=== PATIENT | female | born 2005 | race Caucasian/White ===

== ENCOUNTER → 2023-06-15 | Outpatient (CLI) | payer OTHER ==
--- NOTE | 2023-06-15 18:25 | FL ---
EXAMINATION TYPE: FL UGI air w small bowel DATE OF EXAM: 06/15/2023 COMPARISON: NONE HISTORY: 18-year-old female R10.9, abdominal pain, some nausea, reports 6 months of occasional blood in the stool. TECHNIQUE: A double contrast UGI study is performed with small bowel follow through. A total of 2 m inutes 8 seconds of fluoroscopic time was utilized during procedure and 61 images obtained. Total do se area product (DAP) in uGy*m?, mGy*cm? (or similar): 25. FINDINGS: Patient Monitor image of the abdomen shows no gross abnormality. The esophagus shows normal motility and emptying into the stomach. No evidence of hiatal hernia or s tricture noted. However, there was severe gastroesophageal reflux encountered during the supine turning maneuvers. The stomach shows normal distensibility, peristalsis, and mucosal folds. There is appearance of smal l round filling defects at the proximal body of the stomach. No other evidence of of any mass or ulce r disease. The duodenal bulb and sweep are unremarkable. The small bowel study shows normal transit to the colon in less than 60 minutes. There is normal muc osal fold pattern throughout the small bowel. There is no evidence of any stricture or filling defec t noted. The terminal ileum is unremarkable. IMPRESSION: 1. No sizable hiatal hernia seen. However, there was severe gastroesophageal reflux to the patient's neck during supine turning maneuvers. 2. Small round filling defects within the proximal body of the stomach. As these persist on some of t he later images, some of these may represent small hyperplastic polyps (in the setting of mild chroni c gastritis) rather than persistent air bubbles related to the effervescent granules. 3. Normal small bowel exam with transit time of 60 minutes.
== END | disposition home or self-care (01) ==
LOC: RADFLMAIN 09:02
PROVIDERS: ATTEND Internal Medicine Gastroenterology
DX: K21.9 Gastro-esophageal reflux disease without esophagitis (principal)
CPT/HCPCS: 74240; 74248

== ENCOUNTER 2024-02-01 15:22 | Observation (INO) | payer OTHER ==
--- NOTE | 2024-02-01 15:56 | ED ---
Abdominal Pain HPI - General Chief Complaint: Abdominal Pain Stated Complaint: abd pain R side Time Seen by Provider: 02/01/24 15:39 Source: patient Mode of arrival: ambulatory Limitations: no limitations - History of Present Illness Initial Comments: This patient is a 18-year-old woman who presents to have evaluation of abdominal pain. She states that about 9 AM she had sharp periumbilical pain that lasted there for a very brief interval for moving to her right side. She states that she then went to an urgent care where they examined her and they performed a urinalysis that was reportedly negative and sent her to have evaluation for possible appendicitis. The patient states she has not noted fever or chills. She has had some associated nausea but no other fever , diarrhea, change in urination, vaginal discharge or bleeding. MD Complaint: abdominal pain Onset/Timin -: hour(s) Location: RLQ, epigastric Radiation: none Migration to: RLQ Severity: moderate Quality: other (Unable to characterize) Consistency: constant Improves With: nothing Worsens With: nothing Associated Symptoms: nausea - Related Data LMP (females 10-50): last week Home Medications Medication Instructions Recorded Confirmed clindamycin HCL [Cleocin] 300 mg PO QID 02/01/24 02/01/24 diphenhydrAMINE HCL [Benadryl 50 mg PO BID PRN 02/01/24 02/01/24 Allergy] Previous Rx's Medication Instructions Recorded Acetaminophen Tab [Tylenol Tab] 1,000 mg PO Q6HR PRN #30 tablet 02/02/24 Ibuprofen [Motrin] 600 mg PO Q8HR PRN #30 tab 02/02/24 Simethicone [Gas-X] 125 mg PO AC-TID PRN #20 capsule 02/02/24 Allergies Allergy/AdvReac Type Severity Reaction Status Date / Time cephalexin [From Keflex] AdvReac Rash/Hives Verified 02/01/24 16:29 sulfamethoxazole AdvReac Vomiting/Na Verified 02/01/24 16:33 [From Bactrim] usea/Headac hes trimethoprim [From Bactrim] AdvReac Vomiting/Na Verified 02/01/24 16:33 usea/Headac hes Review of Systems ROS Statement: Those systems with pertinent positive or pertinent negative responses have been documented in the HPI. ROS Other: All systems not noted in ROS Statement are negative. Constitutional: Denies: fever, chills, weakness Respiratory: Denies: cough, dyspnea Cardiovascular: Denies: chest pain, palpitations, edema Gastrointestinal: Reports: abdominal pain, nausea, constipation (Chronic). Denies: vomiting, diarrhea, melena, hematochezia Genitourinary: Denies: dysuria, hematuria Musculoskeletal: Denies: back pain Skin: Denies: rash Neurological: Denies: headache, weakness Past Medical History Past Medical History: No Reported History Past Surgical History: No Surgical Hx Reported Smoking Status: Never smoker Past Alcohol Use History: None Reported Past Drug Use History: None Reported General Exam Limitations: no limitations General appearance: alert, in no apparent distress Head exam: Present: atraumatic, normocephalic Eye exam: Present: normal appearance. Absent: scleral icterus, conjunctival injection ENT exam: Present: normal oropharynx Neck exam: Present: normal inspection Respiratory exam: Present: normal lung sounds bilaterally. Absent: respiratory distress, wheezes, rales, rhonchi, stridor, accessory muscle use Cardiovascular Exam: Present: regular rate, normal rhythm, normal heart sounds. Absent: systolic murmur, diastolic murmur, rubs, gallop GI/Abdominal exam: Present: soft, tenderness. Absent: distended, guarding, rebound, rigid, mass, pulsatile mass, hernia Extremities exam: Present: normal inspection, normal capillary refill. Absent: pedal edema, calf tenderness Back exam: Present: normal inspection. Absent: CVA tenderness (R), CVA tenderness (L) Neurological exam: Present: alert Skin exam: Present: warm, dry, intact, normal color. Absent: rash Course Vital Signs 02/01/24 02/01/24 02/01/24 15:29 16:49 18:20 Temperature 98 F Pulse Rate 97 81 80 Respiratory 18 18 16 Rate Blood Pressure 107/65 102/61 102/63 O2 Sat by Pulse 98 99 98 Oximetry 02/01/24 19:29 Temperature 98.2 F Pulse Rate 85 Respiratory 18 Rate Blood Pressure 113/68 O2 Sat by Pulse 100 Oximetry Medical Decision Making - Medical Decision Making The patient had CT scan of the abdomen pelvis that I interpreted as showing evidence of acute appendicitis. Was pt. sent in by a medical professional or institution (, PA, ADMISSIONS REPRESENTATIVE, urgent care, hospital, or care home...) When possible be specific @ -This the patient was sent here from urgent care clinic. Did you speak to anyone other than the patient for history (EMS, parent, family, police, friend...)? What history was obtained from this source @ -[No] Did you review nursing and triage notes (agree or disagree)? Why? @ -[I reviewed and agree with nursing and triage notes] Were old charts reviewed (outside hosp., previous admission, EMS record, old EKG, old radiological studies, urgent care reports/EKG's, care home records)? Report findings @ -Yes, old charts were reviewed] Differential Diagnosis (chest pain, altered mental status, abdominal pain women, abdominal pain men, vaginal bleeding, weakness, fever, dyspnea, syncope, headache, dizziness, GI bleed, back pain, seizure, CVA, palpatations, mental health, musculoskeletal)? @ -[Differential Abdominal Pain Women: Appendicitis, Cholecystitis, diverticulosis, ischemic bowel, pancreatitis, hepatitis, UTI, gastroenteritis, AAA, incarcerated hernia, bowel obstruction, constipation, inflammatory bowel, hepatitis, peptic ulcer disease, splenic infarction, perforated viscus, vulvitis, ovarian torsion, PID, kidney stone, placenta abruption, this is not meant to be an all-inclusive list EKG interpreted by me (3pts min.). @ -[As above] X-rays interpreted by me (1pt min.). @ -[None done] CT interpreted by me (1pt min.). @ -[I interpreted as above U/S interpreted by me (1pt. min.). @ -[None done] What testing was considered but not performed or refused? (CT, X-rays, U/S, labs)? Why? @ -[None] What meds were considered but not given or refused? Why? @ -[None] Did you discuss the management of the patient with other professionals (professionals i.e. , PA, ADMISSIONS REPRESENTATIVE, lab, RT, psych nurse, geriatric social worker, box lining machine operator, teacher, chief sustainability officer, rn case manager hospice)? Give summary @ -[No] Was smoking cessation discussed for >3mins.? @ -[No] Was critical care preformed (if so, how long)? @ -[No] Were there social determinants of health that impacted care today? How? (Homelessness, low income, unemployed, alcoholism, drug addiction, transportation, low edu. Level, literacy, decrease access to med. care, assisted, rehab)? @ -[No] Was there de-escalation of care discussed even if they declined (Discuss DNR or withdrawal of care, Hospice)? DNR status @ -[No] What co-morbidities impacted this encounter? (DM, HTN, Smoking, COPD, CAD, Cancer, CVA, ARF, Chemo, Hep., AIDS, mental health diagnosis, sleep apnea, morbid obesity)? @ -[None] Was patient admitted / discharged? Hospital course, mention meds given and route, prescriptions, significant lab abnormalities, going to OR and other pertinent info. @ -[hospital course] Undiagnosed new problem with uncertain prognosis? @ -[No] Drug Therapy requiring intensive monitoring for toxicity (Heparin, Nitro, Insulin, Cardizem)? @ -[No] Were any procedures done? @ -[No] Diagnosis/symptom? @ -Abdominal pain Acute appendicitis Acute, or Chronic, or Acute on Chronic? @ -[Acute Uncomplicated (without systemic symptoms) or Complicated (systemic symptoms)? @ -[Uncomplicated Side effects of treatment? @ -[No] Exacerbation, Progression, or Severe Exacerbation? @ -[No] Poses a threat to life or bodily function? How? (Chest pain, USA, IA, pneumonia, PE, COPD, DKA, ARF, appy, cholecystitis, CVA, Diverticulitis, Homicidal, Suicidal, threat to staff... and all critical care pts) @ -[No] - Lab Data Result diagrams: 02/02/24 05:21 02/01/24 15:56 Lab Results 02/01/24 02/01/24 02/01/24 Range/Units 15:56 15:56 15:56 WBC 14.2 H (4.0-11.0) k/uL RBC 4.65 (3.80-5.40) m/uL Hgb 14.6 (11.4-16.0) gm/dL Hct 44.3 (34.0-46.0) % MCV 95.3 (80.0-100.0) fL MCH 31.3 (25.0-35.0) pg MCHC 32.8 (31.0-37.0) g/dL RDW 12.1 (11.5-15.5) % Plt Count 346 (150-450) k/uL MPV 7.8 Neutrophils % 73 % Lymphocytes % 20 % Monocytes % 4 % Eosinophils % 2 % Basophils % 0 % Neutrophils # 10.4 H (1.3-7.7) k/uL Lymphocytes # 2.8 (1.0-4.8) k/uL Monocytes # 0.6 (0-1.0) k/uL Eosinophils # 0.3 (0-0.7) k/uL Basophils # 0.1 (0-0.2) k/uL Sodium 137 (137-145) mmol/L Potassium 4.1 (3.5-5.1) mmol/L Chloride 106 (98-107) mmol/L Carbon Dioxide 23 (22-30) mmol/L Anion Gap 8 mmol/L BUN 10 (7-17) mg/dL Creatinine 0.51 L (0.52-1.04) mg/dL Est GFR (CKD-EPI)AfAm >90 (>60 ml/min/1.73 sqM) Est GFR (CKD-EPI)NonAf >90 (>60 ml/min/1.73 sqM) Glucose 82 (74-99) mg/dL Plasma Lactic Acid Parish (0.7-2.0) mmol/L Calcium 9.7 (8.4-10.2) mg/dL Total Bilirubin 0.5 (0.2-1.3) mg/dL AST 26 (14-36) U/L ALT 16 (4-34) U/L Alkaline Phosphatase 77 (38-126) U/L C-Reactive Protein <0.5 (<1.0) mg/dL Total Protein 7.0 (6.3-8.2) g/dL Albumin 4.5 (3.5-5.0) g/dL Urine HCG, Qual Not Detected (Not Detectd) 02/01/24 Range/Units 15:56 WBC (4.0-11.0) k/uL RBC (3.80-5.40) m/uL Hgb (11.4-16.0) gm/dL Hct (34.0-46.0) % MCV (80.0-100.0) fL MCH (25.0-35.0) pg MCHC (31.0-37.0) g/dL RDW (11.5-15.5) % Plt Count (150-450) k/uL MPV Neutrophils % % Lymphocytes % % Monocytes % % Eosinophils % % Basophils % % Neutrophils # (1.3-7.7) k/uL Lymphocytes # (1.0-4.8) k/uL Monocytes # (0-1.0) k/uL Eosinophils # (0-0.7) k/uL Basophils # (0-0.2) k/uL Sodium (137-145) mmol/L Potassium (3.5-5.1) mmol/L Chloride (98-107) mmol/L Carbon Dioxide (22-30) mmol/L Anion Gap mmol/L BUN (7-17) mg/dL Creatinine (0.52-1.04) mg/dL Est GFR (CKD-EPI)AfAm (>60 ml/min/1.73 sqM) Est GFR (CKD-EPI)NonAf (>60 ml/min/1.73 sqM) Glucose (74-99) mg/dL Plasma Lactic Acid Parish 1.0 (0.7-2.0) mmol/L Calcium (8.4-10.2) mg/dL Total Bilirubin (0.2-1.3) mg/dL AST (14-36) U/L ALT (4-34) U/L Alkaline Phosphatase (38-126) U/L C-Reactive Protein (<1.0) mg/dL Total Protein (6.3-8.2) g/dL Albumin (3.5-5.0) g/dL Urine HCG, Qual (Not Detectd) Disposition Clinical Impression: Abdominal pain, Acute appendicitis Disposition: ADMITTED IP TO THIS HOSP Condition: Good Is patient prescribed a controlled substance at d/c from ED?: No
[2024-02-01 16:19] LABS: Basophils # (A) 0.1 k/uL (0-0.2); Basophils % (A) 0 %; Eosinophils # (A) 0.3 k/uL (0-0.7); Eosinophils % (A) 2 %; HCT 44.3 % (34.0-46.0); HGB 14.6 gm/dL (11.4-16.0); Lymphocytes # (A) 2.8 k/uL (1.0-4.8); Lymphocytes % (A) 20 %; MCH 31.3 pg (25.0-35.0); MCHC 32.8 g/dL (31.0-37.0); MCV 95.3 fL (80.0-100.0); Mean Platelet Volume 7.8; Monocytes # (A) 0.6 k/uL (0-1.0); Monocytes % (A) 4 %; Neutrophils # (A) 10.4 k/uL (1.3-7.7); Neutrophils % (A) 73 %; Platelet Count 346 k/uL (150-450); RBC 4.65 m/uL (3.80-5.40); RDW 12.1 % (11.5-15.5); WBC 14.2 k/uL (4.0-11.0)
[2024-02-01 16:30] LABS: ALT 16 U/L (4-34); AST 26 U/L (14-36); African American GFR (CKD) >90 (>60 ml/min/1.73 sqM); Albumin 4.5 g/dL (3.5-5.0); Alkaline Phosphatase 77 U/L (38-126); Anion Gap 8 mmol/L; Blood Urea Nitrogen 10 mg/dL (7-17); Calcium 9.7 mg/dL (8.4-10.2); Carbon Dioxide 23 mmol/L (22-30); Chloride 106 mmol/L (98-107); Glucose 82 mg/dL (74-99); Non-African American GFR(CKD) >90 (>60 ml/min/1.73 sqM); Potassium 4.1 mmol/L (3.5-5.1); Sodium 137 mmol/L (137-145); Total Bilirubin 0.5 mg/dL (0.2-1.3)
[2024-02-01 17:06] LABS: C Reactive Protein <0.5 mg/dL (<1.0)
[2024-02-01] MEDS: MORPHINE SULFATE 4 MG/ML SYRINGE IV STA (18:20)
--- NOTE | 2024-02-01 18:21 | CT ---
EXAMINATION TYPE: CT abdomen pelvis wo con DATE OF EXAM: 02/01/2024 COMPARISON: None HISTORY: 18-year-old female RLQ pain, r/o appendicitis. CT DLP: 411.9 mGycm. Automated exposure control for dose reduction was used. TECHNIQUE: Contiguous axial scanning of the abdomen and pelvis without IV contrast. Coronal and sagit jose reconstructions performed. FINDINGS: Heart normal size without pericardial effusion. Lung bases clear without pleural effusion. Noncontrast appearance of the liver, gallbladder, adrenal glands, kidneys, spleen, and pancreas show no gross abnormality. No dilated small bowel, free fluid, or free air. The appendix is mildly dilated up to 7 mm, fluid-filled, and containing a straightening of punctate a ppendicoliths measuring up to 3 mm. There is mild periappendiceal fat stranding present. A few borderline enlarged 1 cm mesenteric lymph nodes probably reactive/post inflammatory. Mild overall stool burden. No other peritransplant inflammatory change seen. Bladder urine distended. Uterus anteverted. Both ovaries are visualized. Mild cul-de-sac free fluid l ikely physiologic. Bones: Right lower truncal shift likely positional. IMPRESSION: 1. Exam positive for acute diverticulitis with mild inflammation. No abscess or free air. 2. Mild cul-de-sac free fluid likely physiologic.
[2024-02-01] MEDS: SODIUM CHLORIDE 0.9% 500 ML 500 ML IV STA (18:59)
[2024-02-01] MEDS: SODIUM CHLORIDE 0.9% 1,000 ML IV STA (18:59)
[2024-02-01] MEDS ORDERED: NALOXONE 0.4 MG/ML 1 ML VIAL IV PRN (19:24)
[2024-02-01] MEDS ORDERED: MAG HYDROX/AL HYDROX/SIMETH 30 ML CUP PO PRN (19:24)
--- NOTE | 2024-02-01 19:29 | P.GSHP ---
History of Present Illness H&P Date: 02/01/24 CHIEF COMPLAINT: Right lower quadrant abdominal pain with appendicitis for less than 12 hours HISTORY OF PRESENT ILLNESS: The patient is a previously healthy 18-year-old female who presents with less than 12-hour history of periumbilical with right lower quadrant abdominal pain that is crampy dull ache in nature. No reports of prior abdominal pain. She states the intensity of the pain is moderate. Her presented with CT abdomen and pelvis consistent with dilated appendix suspicious for appendicitis hence general surgery admission. PAST MEDICAL HISTORY: See list and reviewed PAST SURGICAL HISTORY: See list and reviewed CURRENT MEDICATIONS: See list and reviewed ALLERGIES: See list and reviewed SOCIAL HISTORY: See list and reviewed FAMILY HISTORY: See list and reviewed REVIEW OF ORGAN SYSTEMS: CONSTITUTIONAL: Present fever, no chills. Denies recent weight loss. HEENT: Denies any trouble with vision, hearing or nosebleeds. No difficulty swallowing. LYMPHATIC: The patient denies any lumps and bumps around the neck. ENDOCRINE: Denies any thyroid disorders. Denies any blood sugar glucose intolerance. RESPIRATORY: Denies shortness of breath including chronic cough. CARDIOVASCULAR: Denies history of chest pain with exertion. GASTROINTESTINAL: Denies regurgitation of bile at night as well as intermittent nausea. No blood in stools. GENITOURINARY: Denies any blood in urine or increased urinary frequency. MUSCULOSKELETAL: Denies current joint arthritis. NEUROLOGIC: Denies any numbness or tingling along the distal extremities. No seizure disorders or headaches. PSYCHIATRIC: Denies any depression or suicidal ideation. HEMATOLOGIC: Denies any abnormal bleeding or bruising. PHYSICAL EXAMINATION: VITALS: Reviewed. GENERAL: Well-developed and in no acute distress. Pleasant. HEENT: No sclera icterus. Extraocular movements grossly intact. Moist buccal mucosa. Head is atraumatic, normocephalic. Hears conversational speech. No nasal drainage. NECK: Supple without lymphadenopathy. No JV distention. CHEST: Non-labored respirations and equal bilateral excursions. CARDIOVASCULAR: Regular rate and rhythm. Palpable 2+ radial pulses. ABDOMEN: Soft, tender at the right lower quadrant without guarding. MUSCULOSKELETAL: No clubbing, cyanosis or edema. NEUROLOGIC: No focal or lateralizing signs. PSYCH: Appropriate affect. Alert and oriented to person, place and time. SKIN: Well perfused. Good skin turgor. LABS: Reviewed. White blood cell count elevated over 14,000. STUDIES: CT of the abdomen and pelvis independently reviewed with findings consistent with appendicitis. ASSESSMENT: 1. Right lower quadrant pain. 2. Appendicitis 3. Leukocytosis. PLAN: 1. I have discussed benefits and risks of robotic appendectomy. 2. Bilateral SCDs. 3. Antibiotics intravenous to address moderate leukocytosis Thank you very much for allowing me to participate in the care of your patient. Past Medical History Past Medical History: No Reported History Past Surgical History: No Surgical Hx Reported Smoking Status: Never smoker Past Alcohol Use History: None Reported Past Drug Use History: None Reported Medications and Allergies Home Medications Medication Instructions Recorded Confirmed Type clindamycin HCL [Cleocin] 300 mg PO QID 02/01/24 02/01/24 History diphenhydrAMINE HCL [Benadryl 50 mg PO BID PRN 02/01/24 02/01/24 History Allergy] Allergies Allergy/AdvReac Type Severity Reaction Status Date / Time cephalexin [From Keflex] AdvReac Rash/Hives Verified 02/01/24 16:29 sulfamethoxazole AdvReac Vomiting/Na Verified 02/01/24 16:33 [From Bactrim] usea/Headac hes trimethoprim [From Bactrim] AdvReac Vomiting/Na Verified 02/01/24 16:33 usea/Headac hes Surgical - Exam Vital Signs Temp Pulse Resp BP Pulse Ox 98 F 97 18 107/65 98 02/01/24 15:29 02/01/24 15:29 02/01/24 15:29 02/01/24 15:29 02/01/24 15:29 Results - Labs 02/01/24 15:56 02/01/24 15:56 Abnormal Lab Results - Last 24 Hours (Table) 02/01/24 02/01/24 Range/Units 15:56 15:56 WBC 14.2 H (4.0-11.0) k/uL Neutrophils # 10.4 H (1.3-7.7) k/uL Creatinine 0.51 L (0.52-1.04) mg/dL Diabetes panel 02/01/24 Range/Units 15:56 Sodium 137 (137-145) mmol/L Potassium 4.1 (3.5-5.1) mmol/L Chloride 106 (98-107) mmol/L Carbon Dioxide 23 (22-30) mmol/L BUN 10 (7-17) mg/dL Creatinine 0.51 L (0.52-1.04) mg/dL Glucose 82 (74-99) mg/dL Calcium 9.7 (8.4-10.2) mg/dL AST 26 (14-36) U/L ALT 16 (4-34) U/L Alkaline Phosphatase 77 (38-126) U/L Total Protein 7.0 (6.3-8.2) g/dL Albumin 4.5 (3.5-5.0) g/dL Calcium panel 02/01/24 Range/Units 15:56 Calcium 9.7 (8.4-10.2) mg/dL Albumin 4.5 (3.5-5.0) g/dL Pituitary panel 02/01/24 Range/Units 15:56 Sodium 137 (137-145) mmol/L Potassium 4.1 (3.5-5.1) mmol/L Chloride 106 (98-107) mmol/L Carbon Dioxide 23 (22-30) mmol/L BUN 10 (7-17) mg/dL Creatinine 0.51 L (0.52-1.04) mg/dL Glucose 82 (74-99) mg/dL Calcium 9.7 (8.4-10.2) mg/dL Adrenal panel 02/01/24 Range/Units 15:56 Sodium 137 (137-145) mmol/L Potassium 4.1 (3.5-5.1) mmol/L Chloride 106 (98-107) mmol/L Carbon Dioxide 23 (22-30) mmol/L BUN 10 (7-17) mg/dL Creatinine 0.51 L (0.52-1.04) mg/dL Glucose 82 (74-99) mg/dL Calcium 9.7 (8.4-10.2) mg/dL Total Bilirubin 0.5 (0.2-1.3) mg/dL AST 26 (14-36) U/L ALT 16 (4-34) U/L Alkaline Phosphatase 77 (38-126) U/L Total Protein 7.0 (6.3-8.2) g/dL Albumin 4.5 (3.5-5.0) g/dL
[2024-02-01] MEDS: LIDOCAINE 2%-EPI 1:100,000 20 ML VIAL SQ ONE ×3 (20:02→20:57)
[2024-02-01] MEDS ORDERED: MIDAZOLAM 2 MG/2 ML VIAL ONE (20:40)
[2024-02-01] MEDS ORDERED: ROCURONIUM 10 MG/ML (5 ML VIAL) IV ONE (20:40)
[2024-02-01] MEDS ORDERED: SUCCINYLCHOLINE CHLORIDE 200 MG/10 ML VIAL IV ONE (20:40)
[2024-02-01] MEDS ORDERED: PROPOFOL 10 MG/ML 20 ML VIAL IV ONE (20:40)
[2024-02-01] MEDS: IV FLUID CONTINUATION 1,000 ML IV ONE (20:40)
[2024-02-01] MEDS ORDERED: HYDROmorphone (PF) 1 MG/ML ONE (20:40)
[2024-02-01] MEDS ORDERED: KETOROLAC 15 MG/ML 1 ML VIAL ONE (20:40)
[2024-02-01] MEDS ORDERED: fentaNYL (PF) 50 MCG/ML 2 ML AMP ONE (20:40)
[2024-02-01] MEDS: SODIUM CHLORIDE 0.9% 50 ML with ceFAZolin 2,000 MG IV ONE (20:59)
[2024-02-01] MEDS: LACTATED RINGERS 1,000 ML IV ONE (21:21)
[2024-02-01] MEDS ORDERED: HYDROmorphone 1 MG/ML 1 ML SYRINGE IVP PRN (21:31)
[2024-02-01] MEDS ORDERED: diphenhydrAMINE 50 MG/ML 1 ML VIAL IVP PRN (21:33)
--- NOTE | 2024-02-01 21:36 | P.OP ---
Date of Procedure: 02/01/24 Description of Procedure: SURGEON: GALE PELLETIER MD Preoperative Diagnosis: 1. Acute appendicitis Postoperative Diagnosis: 1. Acute appendicitis, retrocecal with periappendicitis 2. Chronic cholecystitis Procedure(s) Performed: 1. Robotic-assisted daVinci Xi laparoscopic appendectomy Anesthesia: GETA, local Estimated Blood Loss (ml): 5 Pathology: other (appendix) Condition: stable Disposition: floor Operative Findings: 1. Acute appendicitis without rupture with periappendicitis, retrocecal 2. Terminal ileum unremarkable 3. Cecum unremarkable 4. Right upper quadrant pericholecystic adhesions suspicious for chronic cholecystitis INDICATIONS: The patient is a 18-year-old male who presents with acute appendicitis. Benefits and risks, including infection, open surgery, and bleeding for additional surgery was discussed at length. Informed consent was obtained. All questions of the patient and family were answered. DESCRIPTION: The patient was transferred to the operating room and placed in supine position. The patient had previously voided. The abdomen was then prepp ed and draped in standard sterile fashion as Ioban was placed along the abdomen to minimize any contamination of skin floor. After a timeout protocol was performed, attention was then brought to the left upper quadrant whereby a 0 degree 5 mm laparoscopic trocar entry was performed. The abdominal cavity was entered and insufflated to 12 mmHg pressure, which was tolerated well. Diagnostic laparoscopy demonstrated no injury to bowel, viscera or mesentery. Next a robotic 8-mm trocar was placed along the left lower quadrant, 10-cm lateral to the midline. A 12 mm port was placed along the left upper quadrant and another 8-mm port left lateral abdominal wall. Ports were placed 8 cm apart from each other including 15-20 cm away from the target anatomy of the right pelvis. The patient was then placed in Trendelenburg position, at least 14 down and right side up at least 7. The robotic da Amber XI system was primed and docked from the left side of the patient. Using atraumatic graspers and vessel sealer, the robotic system was docked and primed as described. Instruments were interchanged by the assistant shift supervisor including graspers, robotic stapler and vessel sealer. Next, attention was brought to identify the cecum. A systematic view within the abdominal cavity was started with the small bowel which was unremarkable. The gallbladder had pericholecystic adhesions consistent with chronic cholecystitis. The base of the cecum was unremarkable. The appendix was retrocecal coursing towards right upper quadrant behind the ascending colon with additional dissection required. The body of the appendix was dilated with periappendicitis. No perforation was identified. The appendix was dissected free from its surrounding tissues. White 45 mm robotic staple loads were fired along the base of the appendix. The staple line was hemostatic. Hemostasis was checked prior to undocking the robot. The robot was undocked. I re-scrubbed into the case. The specimen was removed from the abdominal cavity through the 12 mm trocar at the left upper quadrant. All instruments and pneumoperitoneum were evacuated from the abdominal cavity. Local anesthetic was infiltrated to all wounds for postop analgesia. All incisions were also cleansed with diluted hydrogen peroxide. The incisions were closed with 4-0 Monocryl. Exofin glue was applied to the rest of the skin incisions. The patient had tolerated the procedure well. The patient was extubated successfully. The patient was transferred to the postanesthesia care unit in stable condition.
[2024-02-01 21:56] VITALS: RESP 16
[2024-02-01] MEDS: ONDANSETRON 4 MG/2 ML VIAL IVP PRN (22:25)
[2024-02-01] MEDS: HEPARIN SODIUM,PORCINE 5,000 UNIT/ML 1 ML VIAL SQ STA (22:38)
[2024-02-01] MEDS: FAMOTIDINE 20 MG TAB PO SCH (22:38)
[2024-02-02] MEDS: AMPICILLIN-SULBACTAM 3 GM in SODIUM CHLORIDE 0.9% 100 ML IVPB SCH (00:20)
[2024-02-02] MEDS: ACETAMINOPHEN TAB 325 MG TAB PO SCH (00:20)
[2024-02-02] MEDS: DEXAMETHASONE SOD PHOSPHATE 4 MG/ML 1 ML VIAL IVP SCH (00:21)
[2024-02-02] MEDS: KETOROLAC 15 MG/ML 1 ML VIAL IVP SCH (00:21)
[2024-02-02] MEDS: SODIUM CHLORIDE 0.9% 1,000 ML IV SCH (00:47)
[2024-02-02] MEDS: SCOPOLAMINE 1 MG/72 HR PATCH TRANSDERM STA (00:47)
[2024-02-02] MEDS: MORPHINE SULFATE 4 MG/ML SYRINGE IV PRN (06:35)
[2024-02-02] MEDS: HEPARIN SODIUM,PORCINE 5,000 UNIT/ML 1 ML VIAL SQ SCH (08:17)
[2024-02-02 08:45] VITALS: BP 95/53; PULSE 93; TEMP 98.2
--- NOTE | 2024-02-02 08:54 | US ---
EXAMINATION TYPE: US gallbladder DATE OF EXAM: 02/02/2024 COMPARISON: CT 02/01/2024 CLINICAL INDICATION: Female, 18 years old with history of Right upper quadrant pain; RUQ pain, append ectomy after CT last night. TECHNIQUE: Multiple sonographic images of the right upper quadrant are obtained. FINDINGS: EXAM MEASUREMENTS: Liver Length: 14.4 cm Gallbladder Wall: 0.22 cm CBD: 0.34 cm Right Kidney: 12.1 x 5.0 x 4.6 cm DISTRICT TRAFFIC CHIEF NOTES: Exam is limited due to gas. Pancreas: Portions seen appear wnl, slightly limited. Liver: Appears wnl Gallbladder: Folds seen. No abnormalities seen at this time. Evidence for sonographic Rich's sign: No CBD: Appears wnl Right Kidney: No hydronephrosis or masses seen IMPRESSION: No evidence for acute process.
[2024-02-02 10:56] LABS: Basophils # (A) 0.02 X 10*3/uL (0.00-0.10); Basophils % (A) 0.2 %; Eosinophils # (A) 0 X 10*3/uL (0.04-0.35); Eosinophils % (A) 0 %; HCT 37.9 % (37.2-46.3); HGB 12.6 g/dL (12.0-15.0); Lymphocytes # (A) 1.06 X 10*3/uL (0.90-5.00); Lymphocytes % (A) 9.4 %; MCHC 33.2 g/dL (32.0-37.0); MCV 93.1 FL (80.0-97.0); Mean Platelet Volume 10.3 FL (9.5-12.2); Monocytes # (A) 0.08 X 10*3/uL (0.20-1.00); Monocytes % (A) 0.7 %; NRBC Per 100 WBC 0 X 10*3/uL (0.00-0.01); Neutrophils # (A) 10.12 X 10*3/uL (1.80-7.70); Neutrophils % (A) 89.3 %; Platelet Count 313 X 10*3/uL (140-440); RBC 4.07 X 10*6/uL (4.10-5.20); WBC 11.32 X 10*3/uL (4.50-10.00)
--- NOTE | 2024-02-02 14:37 | P.DS ---
Providers Date of admission: 02/01/24 19:25 Expected date of discharge: 02/02/24 Attending physician: Trupti Buck Consults: 02/01/24 19:26 Consult Physician Routine Consulting Provider: [facility] Consult Reason/Comments: [facility] Do you want consulting provider notified?: Yes Primary care physician: Rogelio Simons - Discharge Diagnosis(es) (1) Cholecystitis Current Visit: Yes Status: Acute (2) Acute appendicitis Current Visit: Yes Status: Acute Hospital Course: Postoperative Diagnosis: 1. Acute appendicitis, retrocecal with periappendicitis 2. Chronic cholecystitis 3. Gastroesophageal reflux disease 4. Right upper quadrant abdominal pain 5. Right lower quadrant abdominal pain COURSE: The patient is a 18-year-old female admitted with right lower quadrant abdominal pain. Additional history obtained by her mother reports patient has been having epigastric and right upper quadrant abdominal pain for several weeks. No additional diagnostic studies or ultrasounds or upper or lower endoscopies have been performed. CT of the abdomen pelvis demonstrated acute appendicitis. Patient underwent diagnostic Prosky B with appendectomy without sequelae. Intraoperative findings demonstrated moderate adhesions along the gallbladder consistent with chronic cholecystitis. Ultrasound of the gallbladder was obtained to exclude gallstones. Prior to discharge, white blood cell count was improving. Patient was tolerating diet. Her pain had improved. Patient was stable for discharge. Outpatient management for reflux disease and gallbladder disease described. Pertinent Studies: CT of the abdomen pelvis demonstrates acute appendicitis. Ultrasound of the gallbladder without acute gallstones. Procedures: Procedure(s) Performed: 1. Robotic-assisted daVinci Xi laparoscopic appendectomy Anesthesia: GETA, local Estimated Blood Loss (ml): 5 Pathology: other (appendix) Condition: stable Disposition: floor Operative Findings: 1. Acute appendicitis without rupture with periappendicitis, retrocecal 2. Terminal ileum unremarkable 3. Cecum unremarkable 4. Right upper quadrant pericholecystic adhesions suspicious for chronic cholecystitis Patient Condition at Discharge: Good Plan - Discharge Summary Discharge Rx Participant: No New Discharge Prescriptions: New Simethicone [Gas-X] 125 mg PO AC-TID PRN #20 capsule PRN Reason: Pain Ibuprofen [Motrin] 600 mg PO Q8HR PRN #30 tab PRN Reason: Pain Acetaminophen Tab [Tylenol Tab] 1,000 mg PO Q6HR PRN #30 tablet PRN Reason: Pain Continue clindamycin HCL [Cleocin] 300 mg PO QID diphenhydrAMINE HCL [Benadryl Allergy] 50 mg PO BID PRN PRN Reason: Allergic Reaction Discharge Medication List clindamycin HCL [Cleocin] 300 mg PO QID 02/01/24 [History] diphenhydrAMINE HCL [Benadryl Allergy] 50 mg PO BID PRN 02/01/24 [History] Acetaminophen Tab [Tylenol Tab] 1,000 mg PO Q6HR PRN #30 tablet 02/02/24 [Rx] Ibuprofen [Motrin] 600 mg PO Q8HR PRN #30 tab 02/02/24 [Rx] Simethicone [Gas-X] 125 mg PO AC-TID PRN #20 capsule 02/02/24 [Rx] Follow up Appointment(s)/Referral(s): Rogelio Simons MD [Primary Care Provider] - 1-2 days Trupti Buck MD [STAFF PHYSICIAN] - 02/07/24 6:00 pm (TELEHEALTH) Patient Instructions/Handouts: Laparoscopic Appendectomy (DC) Activity/Diet/Wound Care/Special Instructions: TELEHEALTH - DR WILL CALL YOU BETWEEN 9 am to 8 pm NO LONG DRIVES OR AIRPLANE RIDES OVER 30 MINUTES FOR THE NEXT 2 WEEKS DUE TO HIGH RISK OF PULMONARY EMBOLISM/DVTs Recommend low-fat diet for the next 2 days. No lifting over 10 pounds in 2 weeks until February 14November shower. No bath tub soaks for two weeks until February 14 Diet as tolerated. Use Tylenol, simethicone and ibuprofen or Aleve scheduled for the next 24-48 hours for best pain relief. Use ice along incisions for today to prevent swelling. Discharge Disposition: HOME SELF-CARE
== END 2024-02-02 15:23 | disposition home or self-care (01) ==
LOC: EC 15:22 → INTOOBSV 19:25 → 6NMEDSUR 19:25 → UNDODISIN 02-02 15:23
PROVIDERS: ADMIT Surgery Plastic and Reconstructive Surgery; ATTEND Surgery Plastic and Reconstructive Surgery
DX: K35.80 Unspecified acute appendicitis (principal); K81.1 Chronic cholecystitis; K82.8 Other specified diseases of gallbladder; D72.829 Elevated white blood cell count, unspecified; K21.9 Gastro-esophageal reflux disease without esophagitis; Z88.1 Allergy status to other antibiotic agents; Z88.2 Allergy status to sulfonamides
CPT/HCPCS: 44970; S2900; 36415; 74176; 76705; 80053; 81025; 83605; 85025; 86140; 88304; 96365; 96366; 96372; 96375; 96376; 99285

== ENCOUNTER 2024-03-22 07:42 | Day surgery (SDC) | payer OTHER ==
[2024-03-22] MEDS ORDERED: LIDOCAINE 1% INJ 10MG/ML (20 ML MDV) ONE (08:48)
[2024-03-22] MEDS ORDERED: PROPOFOL 10 MG/ML 20 ML VIAL IV ONE (08:48)
[2024-03-22] MEDS ORDERED: LACTATED RINGERS 1,000 ML BAG ONE (08:48)
--- NOTE | 2024-06-14 05:12 | P.GSHP ---
History of Present Illness H&P Date: 03/22/24 CHIEF COMPLAINT: GERD and change in bowel habits HISTORY OF PRESENT ILLNESS: The patient is a 18-year-old female who presents with gastroesophageal reflux disease, epigastric abdominal pain and change in bowel habits for over 3-6 months Upper and lower endoscopy were offered for further evaluation and management. PAST MEDICAL HISTORY: Please see list. PAST SURGICAL HISTORY: Please see list. MEDICATIONS: Please see list. ALLERGIES: Please see list. SOCIAL HISTORY: No illicit drug use FAMILY HISTORY: No reports of Crohn disease or ulcerative colitis. REVIEW OF ORGAN SYSTEMS: CONSTITUTIONAL: No reports of fevers or chills. GI: As above PHYSICAL EXAM: VITAL SIGNS: Stable GENERAL: Well-developed pleasant in no acute distress. HEENT: No scleral icterus. Extraocular movements grossly intact. Moist buccal mucosa. NECK: Supple without lymphadenopathy. CHEST: Unlabored respirations. Equal bilateral excursions. CARDIOVASCULAR: Regular rate and rhythm. Distal 2+ pulses. ABDOMEN: Soft, nondistended. MUSCULOSKELETAL: No clubbing, cyanosis, or edema. ASSESSMENT: 1. Gastroesophageal reflux disease 2. Change in bowel habits PLAN: 1. Recommend proceeding with an upper and lower endoscopy Past Medical History Past Medical History: No Reported History History of Any Multi-Drug Resistant Organisms: None Reported Past Surgical History: No Surgical Hx Reported Past Anesthesia/Blood Transfusion Reactions: No Reported Reaction Smoking Status: Never smoker Past Alcohol Use History: None Reported Past Drug Use History: None Reported Medications and Allergies Home Medications Medication Instructions Recorded Confirmed Type clindamycin HCL [Cleocin] 300 mg PO QID 02/01/24 02/01/24 History diphenhydrAMINE HCL [Benadryl 50 mg PO BID PRN 02/01/24 02/01/24 History Allergy] Acetaminophen Tab [Tylenol Tab] 1,000 mg PO Q6HR PRN #30 tablet 02/02/24 Rx Ibuprofen [Motrin] 600 mg PO Q8HR PRN #30 tab 02/02/24 Rx Simethicone [Gas-X] 125 mg PO AC-TID PRN #20 capsule 02/02/24 Rx Allergies Allergy/AdvReac Type Severity Reaction Status Date / Time cephalexin [From Keflex] AdvReac Rash/Hives Verified 02/01/24 16:29 sulfamethoxazole AdvReac Vomiting/Na Verified 02/01/24 16:33 [From Bactrim] usea/Headac hes trimethoprim [From Bactrim] AdvReac Vomiting/Na Verified 02/01/24 16:33 usea/Headac hes
--- NOTE | 2024-06-14 05:17 | P.PCN ---
Date of Procedure: 03/22/24 Description of Procedure: PREOPERATIVE DIAGNOSIS: Gastroesophageal reflux disease. Epigastric abdominal pain POSTOPERATIVE DIAGNOSIS: Gastroesophageal reflux disease. Gastritis. OPERATION: Esophagogastroduodenoscopy with biopsies along esophagus, antrum and duodenum SURGEON: Trupti Buck MD ANESTHESIA: MAC. INDICATIONS: The patient is a 18-year-old female who presents with gastric pain and reflux disease. Benefits and risks of the procedure were described. Informed consent was obtained. DESCRIPTION: The patient was brought into the endoscopy suite and laid in the left lateral decubitus position. An Olympus gastroscope was passed along the posterior oropharynx down to the distal esophagus where the squamocolumnar junction was encountered at 35cm from the incisors. The stomach was entered and no bile reflux was found. Additional findings are listed below. Biopsies with cold forceps were obtained of the antrum. The first through third portion of the duodenum was examined. Retroflexion of the scope confirmed Hill grade 1 lower esophageal valve. The squamocolumnar junction demonstrated LA grade B erosive esophagitis. The stomach was desufflated. The patient tolerated the procedure well. FINDINGS: Squamocolumnar junction 35 cm from the incisors. Diaphragmatic hiatus at 35 cm. Hiatal hernia, 4 cm Hill grade 1 lower esophageal valve. LA grade B erosive esophagitis. Please obtain. Biopsies obtained of the duodenum. Chronic gastritis with biopsies obtained. RECOMMENDATIONS: Upper endoscopy as needed.
--- NOTE | 2024-06-14 05:18 | P.PCN ---
Date of Procedure: 03/22/24 Description of Procedure: PREOPERATIVE DIAGNOSIS: Abnormal stool function Change in bowel habits POSTOPERATIVE DIAGNOSIS: Microscopic colitis OPERATION: Colonoscopy to the cecum, ileocecal valve and appendiceal orifice. Colonoscopy with random cold forceps biopsies for microscopic colitis SURGEON: Trupti Buck MD. ANESTHESIA: MAC. INDICATIONS: The patient is a 18-year-old female who presents with altered stools including change in bowel habits. Benefits and risks were described and informed consent was obtained. DESCRIPTION OF PROCEDURE: The patient had undergone GoLytely. The patient had been brought into the operating room and laid in the left lateral decubitus position. After adequate intravenous sedation, the rectum was examined with 2% lidocaine jelly. No external hemorrhoids were encountered. The rectal tone was within normal limits. No lesions were palpated in the rectal vault. An Olympus colonoscope was advanced until the cecum, ileocecal valve and appendiceal orifice were clearly viewed. The prep was excellent. No scattered diverticulosis was encountered. No colonic polyps were found. Cold forceps biopsies randomly were obtained for microscopic colitis. Retroflexion of the scope demonstrated grade 1 internal hemorrhoids without active bleeding or inflammation. The colon was desufflated. The patient had tolerated the procedure well. Withdrawal time was over 6 minutes. FINDINGS: Aronchick preparation quality scale 1 (1-5) Internal hemorrhoids, grade 1 No external prolapsed hemorrhoids. No arteriovenous malformations. No adenomatous polyps. Cold forceps biopsies obtained for microscopic colitis RECOMMENDATIONS: Lower endoscopy as needed Plan - Discharge Summary New Discharge Prescriptions: No Action clindamycin HCL [Cleocin] 300 mg PO QID diphenhydrAMINE HCL [Benadryl Allergy] 50 mg PO BID PRN PRN Reason: Allergic Reaction Simethicone [Gas-X] 125 mg PO AC-TID PRN #20 capsule PRN Reason: Pain Ibuprofen [Motrin] 600 mg PO Q8HR PRN #30 tab PRN Reason: Pain Acetaminophen Tab [Tylenol Tab] 1,000 mg PO Q6HR PRN #30 tablet PRN Reason: Pain Discharge Medication List clindamycin HCL [Cleocin] 300 mg PO QID 02/01/24 [History] diphenhydrAMINE HCL [Benadryl Allergy] 50 mg PO BID PRN 02/01/24 [History] Acetaminophen Tab [Tylenol Tab] 1,000 mg PO Q6HR PRN #30 tablet 02/02/24 [Rx] Ibuprofen [Motrin] 600 mg PO Q8HR PRN #30 tab 02/02/24 [Rx] Simethicone [Gas-X] 125 mg PO AC-TID PRN #20 capsule 02/02/24 [Rx]
== END 2024-03-22 10:16 ==
LOC: ORWHC2ENDO 07:42
PROVIDERS: ATTEND Surgery Plastic and Reconstructive Surgery
DX: K29.50 Unspecified chronic gastritis without bleeding (principal); K29.80 Duodenitis without bleeding; D72.820 Lymphocytosis (symptomatic); K52.839 Microscopic colitis, unspecified; K21.9 Gastro-esophageal reflux disease without esophagitis; Z88.1 Allergy status to other antibiotic agents; Z88.6 Allergy status to analgesic agent; Z88.2 Allergy status to sulfonamides
CPT/HCPCS: 81025; 88305; 45380; 43239; J2001; J2704

== ENCOUNTER → 2024-03-30 | Outpatient (CLI) | payer OTHER ==
--- NOTE | 2024-03-30 11:26 | US ---
EXAMINATION TYPE: US gallbladder DATE OF EXAM: 03/30/2024 COMPARISON: 02/02/24. CT:02/01/24 CLINICAL INDICATION: Female, 18 years old with history of R10.11 RUQ PAIN; Pt states she had an appen dectomy on 02/01/[address] said there was something on the GB. TECHNIQUE: Multiple sonographic images of the right upper quadrant are obtained. FINDINGS: EXAM MEASUREMENTS: Liver Length: 13.8 cm Gallbladder Wall: 0.18 cm CBD: 0.29 cm Right Kidney: 11.2 x 4.2 x 4.1 cm Pancreas: wnl Liver: wnl Gallbladder: wnl. A normal junctional fold is noted. Evidence for sonographic Rich's sign: No CBD: wnl Right Kidney: wnl IMPRESSION: Unremarkable sonographic examination of the right upper quadrant. No gallstones or biliary ductal dil atation.
--- NOTE | 2024-03-30 17:22 | NM ---
EXAMINATION TYPE: NM hepatobiliary w EF DATE OF EXAM: 03/30/2024 3:46 PM COMPARISON: CT abdomen pelvis most recent from 02/01/2024 CLINICAL INDICATION:Female, 18 years old with history of RIGHT UPPER QUAD PAIN R10.11; TECHNIQUE: The patient was given 4.8 mCi of Technetium 99m-Mebrofenin as a radiotracer and multiple scintigraphic images were obtained of the abdomen. Gallbladder function was also assessed after the a dministration of ensure drink and additional scintigraphic images were obtained of the abdomen. A reg ion of interest was drawn over the gallbladder and a timing activity curve was generated. The gallbla dder ejection fraction was calculated. Delayed imaging was performed at 90 minutes the gallbladder is visualized. FINDINGS: Normal uptake of radiotracer was identified within the liver with excretion into the hepatic and comm on biliary ducts within 240 . There was normal progressive washout of the liver over the course of th e study. Radiotracer uptake within the gallbladder was not visualized within the first 60 minutes. De layed 90 minute imaging demonstrated the gallbladder filling. Small bowel activity was identified at 240 seconds . Maximum calculated gallbladder ejection fraction is: 60% at 30 minutes (Normal gallbladder ejection fraction is > 35%) IMPRESSION: 1. Abnormal hepatobiliary scan with evidence of chronic cholecystitis with delayed filling of the gal lbladder. 2. Normal ejection fraction.
== END | disposition home or self-care (01) ==
LOC: RADUSWWP 07:33
PROVIDERS: ATTEND Surgery Plastic and Reconstructive Surgery
DX: K81.1 Chronic cholecystitis (principal)
CPT/HCPCS: 76705; 78226; A9537

== ENCOUNTER 2025-02-16 15:09 | Emergency (ER) | payer OTHER ==
[2025-02-16 15:24] VITALS: RESP 16; TEMP 97.8
--- NOTE | 2025-02-16 15:44 | ED ---
Abdominal Pain HPI - General Chief Complaint: Abdominal Pain Stated Complaint: Right Side Abd Pain Time Seen by Provider: 02/16/25 15:14 Source: patient Mode of arrival: ambulatory Limitations: no limitations - History of Present Illness Initial Comments: 19F history of chronic constipation, appendectomy here for abdominal abdominal pain. She has been having abd pain since burning, radiates to right shoulder, 10/10 worse with eating. [place] [facility] [place] for [place]. Tried tylenol and ibuprofen but didn't work. Also reported nausea, moderate vaginal bleeding with clots, nonbloody diarrhea. Saw PCP on tuesday and they were concerned for ovarian cysts and has plans to be evaluated. She has regular menstruations every 30 days, 4-5 days, 4 pads at maximum, LMP January 28. - Related Data Home Medications Medication Instructions Recorded Confirmed clindamycin HCL [Cleocin] 300 mg PO QID 02/01/24 02/01/24 diphenhydrAMINE HCL [Benadryl 50 mg PO BID PRN 02/01/24 02/01/24 Allergy] Previous Rx's Medication Instructions Recorded Acetaminophen Tab [Tylenol Tab] 1,000 mg PO Q6HR PRN #30 tablet 02/02/24 Ibuprofen [Motrin] 600 mg PO Q8HR PRN #30 tab 02/02/24 Simethicone [Gas-X] 125 mg PO AC-TID PRN #20 capsule 02/02/24 Omeprazole 20 mg PO DAILY #14 cap 02/16/25 Allergies Allergy/AdvReac Type Severity Reaction Status Date / Time cephalexin [From Keflex] AdvReac Rash/Hives Verified 02/01/24 16:29 sulfamethoxazole AdvReac Vomiting/Na Verified 02/01/24 16:33 [From Bactrim] usea/Headac hes trimethoprim [From Bactrim] AdvReac Vomiting/Na Verified 02/01/24 16:33 usea/Headac hes Review of Systems ROS Statement: Those systems with pertinent positive or pertinent negative responses have been documented in the HPI. ROS Other: All systems not noted in ROS Statement are negative. Past Medical History Past Medical History: No Reported History Additional Past Medical History / Comment(s): gastritis History of Any Multi-Drug Resistant Organisms: None Reported Past Surgical History: Appendectomy Past Anesthesia/Blood Transfusion Reactions: No Reported Reaction Smoking Status: Never smoker Past Alcohol Use History: None Reported Past Drug Use History: None Reported General Exam - General Exam Comments Initial Comments: Physical examination: Vital signs reviewed General: non toxic, no distress, appears at stated age Head: atraumatic, normocephalic, symmetric Mouth: no lip lesion, mucus membranes moist Cardiovascular: S1S2 reg, no murmur Lungs: CTA bilateral, no rhonchi, no rales, no accessory muscle use Abdominal: soft, nondistended, nontender to palpation, no guarding : Exam done with parent in room, external genitalia normal appearance without lesions, swelling, masses, erythema, exudate or discharge, unable to view introitus due requiring a smaller sized speculum, no cervial motion tenderness, no cystocele or rectocele noted, no masses palpated in the introitus, uterus antefelxed, nontender, ovaries nontender, adnexa without masses/tenderness, mild bleeding noted with clots from intoitus but source not visualized Ext: muscle strength 5 out of 5 in all 4 extremities grossly, no gross muscle atrophy, no contractures, positive dorsalis pedis pulse bilateral, no edema Neuro: no gross focal neuro deficits Psych: Alert and oriented x3, appropriate affect and mood Limitations: no limitations Course Vital Signs 02/16/25 02/16/25 02/16/25 15:22 18:15 18:51 Temperature 97.8 F Pulse Rate 87 76 69 Respiratory 16 16 16 Rate Blood Pressure 124/79 101/61 104/69 O2 Sat by Pulse 99 98 99 Oximetry - Reevaluation(s) Reevaluation #1: 02/16/25 16:45 Pelvic exam offered and verbal consent was provided by patient to proceed. Unable to view introitus due to need for smaller sized speculum. Medical Decision Making - Medical Decision Making Was pt. sent in by a medical professional or institution (, PA, [employer], urgent care, hospital, or halfway...) When possible be specific @ -No Did you speak to anyone other than the patient for history (EMS, parent, family, police, friend...)? What history was obtained from this source @ -Mother at bedside Did you review nursing and triage notes (agree or disagree)? Why? @ -I reviewed and agree with nursing and triage notes Were old charts reviewed (outside hosp., previous admission, EMS record, old EKG, old radiological studies, urgent care reports/EKG's, halfway records)? Report findings @ -[No old charts were reviewed] Differential Diagnosis? @ -Differential Abdominal Pain Women: Appendicitis, Cholecystitis, diverticulosis, ischemic bowel, pancreatitis, hepatitis, UTI, gastroenteritis, AAA, incarcerated hernia, bowel obstruction, constipation, inflammatory bowel, hepatitis, peptic ulcer disease, splenic infarction, perforated viscus, vulvitis, ovarian torsion, PID, kidney stone, placenta abruption, this is not meant to be an all-inclusive list EKG interpreted by me (3pts min.). @ -None done X-rays interpreted by me (1pt min.). @ -None done CT interpreted by me (1pt min.). @ -None done U/S interpreted by me (1pt. min.). @ -None done What testing was considered but not performed or refused? (CT, X-rays, U/S, labs)? Why? @ -None What meds were considered but not given or refused? Why? @ -None Did you discuss the management of the patient with other professionals (professionals i.e. , PA, [employer]ELOPER, lab, RT, psych nurse, social research assistant, tax agent, teacher, real estate officer, case preparer and liner)? Give summary @ -Dr. Bey, supervising physician Was smoking cessation discussed for >3mins.? @ -No Was critical care preformed (if so, how long)? @ -No Were there social determinants of health that impacted care today? How? (Homelessness, low income, unemployed, alcoholism, drug addiction, transportation, low edu. Level, literacy, decrease access to med. care, long term, rehab)? @ -No Was there de-escalation of care discussed even if they declined (Discuss DNR or withdrawal of care, Hospice)? DNR status @ -No What co-morbidities impacted this encounter? (DM, HTN, Smoking, COPD, CAD, Cancer, CVA, ARF, Chemo, Hep., AIDS, mental health diagnosis, sleep apnea, morbid obesity)? @ -None Was patient admitted / discharged? Hospital course, mention meds given and route, prescriptions, significant lab abnormalities, going to OR and other pertinent info. @ -Discharge. 19-year-old female with burning abdominal pain. 1L fluid bolus and tylenol PO ordered. Labs were unremarkable. Negative for . Having mild vaginal bleeding with clots on pelvic exam. Patient's symptoms were stable throughout stay. Likely having gastritis due to acid production. Sent home with omeprazole. Advised follow-up with PCP Undiagnosed new problem with uncertain prognosis? @ -No Drug Therapy requiring intensive monitoring for toxicity (Heparin, Nitro, Insulin, Cardizem)? @ -No Were any procedures done? @ -No Diagnosis/symptom? @ -[default] Acute, or Chronic, or Acute on Chronic? @ -Acute Uncomplicated (without systemic symptoms) or Complicated (systemic symptoms)? @ -Uncomplicated Side effects of treatment? @ -No Exacerbation, Progression, or Severe Exacerbation? @ -No Poses a threat to life or bodily function? How? (Chest pain, [place], [place], pneumonia, PE, COPD, DKA, ARF, appy, cholecystitis, CVA, Diverticulitis, Homicidal, Suicidal, threat to staff... and all critical care pts) @ -No - Lab Data Result diagrams: 02/16/25 15:39 02/16/25 15:39 Lab Results 02/16/25 02/16/25 02/16/25 Range/Units 15:39 15:39 17:00 WBC 7.84 (4.50-10.00) 10*3/uL RBC 4.26 (4.10-5.20) 10*6/uL Hgb 13.7 (12.0-15.0) g/dL Hct 39.1 (37.2-46.3) % MCV 91.8 (80.0-97.0) fL MCH 32.2 H (27.0-32.0) pg MCHC 35.0 (32.0-37.0) g/dL Plt Count 326 (140-440) 10*3/uL MPV 10.0 (9.5-12.2) fL Immature Gran % (Auto) 0.5 % Neutrophils % 52.3 % Lymphocytes % 40.3 % Monocytes % 4.8 % Eosinophils % 1.5 % Basophils % 0.6 % Immature Gran # 0.04 (0.00-0.04) 10*3/uL Neutrophils # 4.09 (1.80-7.70) 10*3/uL Lymphocytes # 3.16 (0.90-5.00) 10*3/uL Monocytes # 0.38 (0.20-1.00) 10*3/uL Eosinophils # 0.12 (0.04-0.35) 10*3/uL Basophils # 0.05 (0.00-0.10) 10*3/uL Sodium 141 (137-145) mmol/L Potassium 4.1 (3.5-5.1) mmol/L Chloride 107 (98-107) mmol/L Carbon Dioxide 22 (22-30) mmol/L Anion Gap 12 mmol/L BUN 10 (7-17) mg/dL Creatinine 0.51 L (0.52-1.04) mg/dL Est GFR (CKD-EPI)AfAm >90 (>60 ml/min/1.73 sqM) Est GFR (CKD-EPI)NonAf >90 (>60 ml/min/1.73 sqM) Glucose 86 (74-99) mg/dL Calcium 9.3 (8.4-10.2) mg/dL Total Bilirubin 0.5 (0.2-1.3) mg/dL AST 25 (14-36) U/L ALT 15 (4-34) U/L Alkaline Phosphatase 73 (38-126) U/L Total Protein 6.7 (6.3-8.2) g/dL Albumin 4.2 (3.5-5.0) g/dL Amylase 53 (30-110) U/L Lipase 73 (23-300) U/L Urine Color Light Yellow Urine Appearance Clear (Clear) Urine pH 8.0 (5.0-8.0) Ur Specific [place] 1.017 (1.001-1.035) Urine Protein Negative (Negative) Urine Glucose (UA) Negative (Negative) Urine Ketones Negative (Negative) Urine Blood Small H (Negative) Urine Nitrite Negative (Negative) Urine Bilirubin Negative (Negative) Urine Urobilinogen <2.0 (<2.0) mg/dL Ur Leukocyte Esterase Negative (Negative) Urine RBC 1 (0-5) /hpf Urine WBC 1 (0-5) /hpf Ur Squamous Epith Cells <1 (0-4) /hpf Urine Mucus Rare H (None) /hpf Urine HCG, Qual (Not Detectd) 02/16/25 Range/Units 17:00 WBC (4.50-10.00) 10*3/uL RBC (4.10-5.20) 10*6/uL Hgb (12.0-15.0) g/dL Hct (37.2-46.3) % MCV (80.0-97.0) fL MCH (27.0-32.0) pg MCHC (32.0-37.0) g/dL Plt Count (140-440) 10*3/uL MPV (9.5-12.2) fL Immature Gran % (Auto) % Neutrophils % % Lymphocytes % % Monocytes % % Eosinophils % % Basophils % % Immature Gran # (0.00-0.04) 10*3/uL Neutrophils # (1.80-7.70) 10*3/uL Lymphocytes # (0.90-5.00) 10*3/uL Monocytes # (0.20-1.00) 10*3/uL Eosinophils # (0.04-0.35) 10*3/uL Basophils # (0.00-0.10) 10*3/uL Sodium (137-145) mmol/L Potassium (3.5-5.1) mmol/L Chloride (98-107) mmol/L Carbon Dioxide (22-30) mmol/L Anion Gap mmol/L BUN (7-17) mg/dL Creatinine (0.52-1.04) mg/dL Est GFR (CKD-EPI)AfAm (>60 ml/min/1.73 sqM) Est GFR (CKD-EPI)NonAf (>60 ml/min/1.73 sqM) Glucose (74-99) mg/dL Calcium (8.4-10.2) mg/dL Total Bilirubin (0.2-1.3) mg/dL AST (14-36) U/L ALT (4-34) U/L Alkaline Phosphatase (38-126) U/L Total Protein (6.3-8.2) g/dL Albumin (3.5-5.0) g/dL Amylase (30-110) U/L Lipase (23-300) U/L Urine Color Urine Appearance (Clear) Urine pH (5.0-8.0) Ur Specific [place] (1.001-1.035) Urine Protein (Negative) Urine Glucose (UA) (Negative) Urine Ketones (Negative) Urine Blood (Negative) Urine Nitrite (Negative) Urine Bilirubin (Negative) Urine Urobilinogen (<2.0) mg/dL Ur Leukocyte Esterase (Negative) Urine RBC (0-5) /hpf Urine WBC (0-5) /hpf Ur Squamous Epith Cells (0-4) /hpf Urine Mucus (None) /hpf Urine HCG, Qual Not Detected (Not Detectd) Disposition Clinical Impression: Abdominal pain Disposition: HOME SELF-CARE Condition: Good Instructions (If sedation given, give patient instructions): Abdominal Pain (ED) Additional Instructions: Every disease is a spectrum and a small chance still exists that a serious condition could develop, for this reason, please monitor yourself closely for new, changing or worsening symptoms, symptoms that persist beyond another 72 hours, fever, chills, nausea, intractable vomiting, inability to tolerate/keep down fluids or your medications, inability to follow up with outpatient providers as instructed and should you experience these symptoms or should you have any further concerns for your wellbeing please return to the ED or call 911 immediately. PLEASE call your primary care physician as soon as possible to arrange / discuss plan for followup appointment. Appointment in the next 1-3 days is strongly encouraged if possible. PLEASE let us know here before you leave if there is anything further we can do to be of any assistance. Take care and feel Better! Prescriptions: Omeprazole 20 mg PO DAILY #14 cap Is patient prescribed a controlled substance at d/c from ED?: No Referrals: Rogelio Simons MD [Primary Care Provider] - 1-2 days Time of Disposition: 18:34
[2025-02-16] MEDS: SODIUM CHLORIDE 0.9% 1,000 ML IV ONE (16:13)
[2025-02-16] MEDS ORDERED: ACETAMINOPHEN TAB 325 MG TAB PO PRN (16:16)
[2025-02-16 16:24] LABS: Basophils # (A) 0.05 10*3/uL (0.00-0.10); Basophils % (A) 0.6 %; Eosinophils # (A) 0.12 10*3/uL (0.04-0.35); Eosinophils % (A) 1.5 %; HCT 39.1 % (37.2-46.3); HGB 13.7 g/dL (12.0-15.0); Lymphocytes # (A) 3.16 10*3/uL (0.90-5.00); Lymphocytes % (A) 40.3 %; MCH 32.2 pg (27.0-32.0); MCHC 35.0 g/dL (32.0-37.0); MCV 91.8 fL (80.0-97.0); Monocytes # (A) 0.38 10*3/uL (0.20-1.00); Monocytes % (A) 4.8 %; Neutrophils # (A) 4.09 10*3/uL (1.80-7.70); Neutrophils % (A) 52.3 %; Platelet Count 326 10*3/uL (140-440); RBC 4.26 10*6/uL (4.10-5.20); RDW 12.2 % (11.5-14.5); WBC 7.84 10*3/uL (4.50-10.00)
[2025-02-16 16:30] LABS: ALT 15 U/L (4-34); AST 25 U/L (14-36); African American GFR (CKD) >90 (>60 ml/min/1.73 sqM); Albumin 4.2 g/dL (3.5-5.0); Alkaline Phosphatase 73 U/L (38-126); Amylase 53 U/L (30-110); Anion Gap 12 mmol/L; Blood Urea Nitrogen 10 mg/dL (7-17); Calcium 9.3 mg/dL (8.4-10.2); Carbon Dioxide 22 mmol/L (22-30); Chloride 107 mmol/L (98-107); Glucose 86 mg/dL (74-99); Lipase 73 U/L (23-300); Non-African American GFR(CKD) >90 (>60 ml/min/1.73 sqM); Potassium 4.1 mmol/L (3.5-5.1); Sodium 141 mmol/L (137-145); Total Protein 6.7 g/dL (6.3-8.2)
[2025-02-16 17:08] LABS: Bilirubin,Urine Negative (Negative); Blood,Urine Small (Negative); Color,Urine Light Yellow; Glucose,Urine (UA) Negative (Negative); Ketones,Urine Negative (Negative); Leukocyte Esterase,Urine Negative (Negative); Mucus,Urine Rare /hpf; Nitrite,Urine Negative (Negative); PH, Urine 8.0 (5.0-8.0); Protein,Urine Negative (Negative); RBC,Urine 1 /hpf (0-5); Specific Gravity,Urine 1.017 (1.001-1.035); Squamous Epithelial Cell,Urine <1 /hpf (0-4); Urobilinogen,Urine <2.0 mg/dL (<2.0); WBC,Urine 1 /hpf (0-5)
[2025-02-16 18:52] VITALS: BP 104/69; PULSE 69
== END 2025-02-16 19:07 | disposition home or self-care (01) ==
LOC: EC 15:09
DX: R10.9 Unspecified abdominal pain (principal); Z88.6 Allergy status to analgesic agent; Z88.1 Allergy status to other antibiotic agents
CPT/HCPCS: 36415; 80053; 81001; 81025; 82150; 83690; 85025